=== PATIENT | male | born 2000 | race Two or more races ===

== ENCOUNTER 2022-10-28 19:52 | Emergency (ER) | payer MEDICAID ==
[~2022-10-28] VITALS: Ht 170.2 cm; Wt 71.8 kg
[2022-10-28] MEDS ORDERED: SODIUM CHLORIDE 0.9% 1,000 ML IVB ONE (20:15)
[2022-10-28] MEDS ORDERED: ASPirin 81 mg TAB PO ONE (20:15)
[2022-10-28] MEDS ORDERED: LORazepam 0.5 MG TAB PO ONE (20:15)
[2022-10-28 20:44] LABS: Basophils # (auto) 0 10 ^3/uL (0-0.2); Hematocrit 46.4 % (41.0-53.0); Hemoglobin 15.9 g/dL (13.5-17.5); Mean Corpuscular Hemoglobin 31.8 pg (28.0-32.0); White Blood Cell 5.8 10^3/uL (4.4-10.8)
[2022-10-28 20:51] LABS: Basophils % (auto) 0.4 % (0.0-2.0); Eosinophils # (auto) 0.3 10 ^3/uL (0-0.8); Eosinophils % (auto) 4.4 % (0.0-7.0); Lymphocytes # (auto) 2.9 10 ^3/uL (0.4-5.4); Lymphocytes % (auto) 50.2 % (10.0-50.0); Mean Corpuscular Hgb Conc. 34.2 g/dL (32.0-36.0); Mean Corpuscular Volume 93.1 fL (80.0-100.0); Monocytes # (auto) 0.3 10 ^3/uL (0-1.3); Monocytes % (auto) 5.6 % (0.0-12.0); Neutrophils # (auto) 2.3 10 ^3/uL (1.6-8.6); Neutrophils % (auto) 39.4 % (37.0-80.0); Nucleated Red Blood Cells % 0.2 %; Red Blood Cells 4.99 10^6/uL (4.5-5.90); Red Cell Distribution Width 12.7 % (11.8-14.3)
[2022-10-28 20:53] LABS: Albumin 4.5 g/dL (3.4-5.0); BUN/Creatinine Ratio 14.6; Calcium 9.2 mg/dL (8.5-10.1); Magnesium 1.8 mg/dL (1.6-2.6); Potassium 3.4 mmol/L (3.5-5.1)
[2022-10-28 20:56] LABS: Bilirubin, Total 0.5 mg/dL (0.2-1.0); Total Protein 7.7 g/dL (6.4-8.2)
[2022-10-28 20:57] LABS: Partial Thromboplastin Time 26.4 sec (24.6-33.4)
[2022-10-28] MEDS ORDERED: IBUP800T27 PO (22:14)
[2022-10-28] MEDS ORDERED: LORA-655 PO (22:14)
[2022-10-28 22:35] VITALS: BP 113/64
== END 2022-10-28 22:48 | disposition home or self-care (01) ==
LOC: ER 19:52
DX: R07.89 Other chest pain (principal); F41.9 Anxiety disorder, unspecified; Z79.899 Other long term (current) drug therapy; Z20.822 Contact with and (suspected) exposure to COVID-19
CPT/HCPCS: 36415; 71045; 80053; 83735; 83880; 84443; 84484; 85025; 85379; 85610; 85730; 87426; 87804; 93005; 96360; 99285; J7030

== ENCOUNTER 2023-06-05 17:19 | Emergency (ER) | payer MEDICAID ==
[~2023-06-05] VITALS: Ht 170.2 cm; Wt 78.1 kg
[~2023-06-05 17:19] MED LIST: IBUP-1456 PO; LORA-655 PO
[2023-06-05] MEDS ORDERED: CLIN300C70 PO (17:59)
[2023-06-05] MEDS ORDERED: IBUP1TAB5 PO (17:59)
[2023-06-05] MEDS ORDERED: HYDROcodone-ACET 5/325MG TAB PO ONE (18:00)
[2023-06-05] MEDS ORDERED: cefTRIAXone SOD 1,000 MG VL IM ONE (18:00)
[2023-06-06] VITALS: BP 120/61; PULSE 55; RESP 18; TEMP 98.7; O2SAT 99
[2023-06-06] MEDS ORDERED: LIDOCAINE 1% HCL (LOCAL ANESTH.) INJ 20ML MDV ONE (00:02)
== END 2023-06-06 00:12 | disposition home or self-care (01) ==
LOC: ER 17:19
DX: K04.7 Periapical abscess without sinus (principal); K02.9 Dental caries, unspecified; L03.211 Cellulitis of face; Z79.1 Long term (current) use of non-steroidal anti-inflammatories (NSAID); Z79.2 Long term (current) use of antibiotics; Z79.899 Other long term (current) drug therapy
CPT/HCPCS: 96372; 99283; J0696; J2001

== ENCOUNTER 2023-07-14 13:04 | Emergency (ER) | payer MEDICAID ==
[~2023-07-14 13:04] MED LIST changes: +CLIN300C70 PO; +IBUP1TAB5 PO
[2023-07-14 14:49] LABS: Hematocrit 44.5 % (41.0-53.0); Hemoglobin 15.3 g/dL (13.5-17.5); Mean Corpuscular Hemoglobin 31.7 pg (28.0-32.0); Mean Corpuscular Hgb Conc. 34.3 g/dL (32.0-36.0); Mean Corpuscular Volume 92.3 fL (80.0-100.0); Red Blood Cells 4.82 10^6/uL (4.5-5.90); White Blood Cell 6.4 10^3/uL (4.4-10.8)
[2023-07-14 14:54] LABS: Alanine Aminotransferase 46 U/L (7-40); Alkaline Phosphatase 55 U/L (46-116); Anion Gap 8 (5-15); Aspartate Aminotransferase 21 U/L (13-40); BUN/Creatinine Ratio 12.9 (10.0-20.0); Bilirubin, Total 0.8 mg/dL (0.2-1.0); Blood Urea Nitrogen 12 mg/dL (9-23); Calcium 9.3 mg/dL (8.7-10.4); Carbon Dioxide 23 mmol/L (20-30); Chloride 108 mmol/L (98-107); Glucose 113 mg/dL (74-106); Lipase 38 U/L (12-53); Potassium 3.9 mmol/L (3.5-5.1); Sodium 139 mmol/L (136-145); Total Protein 6.9 g/dL (5.7-8.2)
[2023-07-14 15:01] LABS: Band Neutrophils % (manual) 0; Basophils % (manual) 0 (0.0-2.0); Blast Cells 0; Metamyelocytes % 0; Myelocytes % 0; Promyelocytes % 0; Reactive Lymphocytes 0
[2023-07-14 15:06] LABS: INR 1.04 (0.9-1.15); Prothrombin Time 10.9 sec (9.3-11.8)
[2023-07-14 15:20] LABS: Albumin 4.6 g/dL (3.2-4.8)
[2023-07-14] MEDS ORDERED: NAPR-1334 PO (16:05)
[2023-07-14 16:16] VITALS: BP 111/66; PULSE 59; RESP 18; TEMP 98; O2SAT 97
[2023-07-14 16:59] LABS: Eosinophils % (manual) 3 (0-7); Lymphocytes % (manual) 57 (10.0-50.0); Monocytes % (manual) 10 (0-12); Platelet Estimate Adequate; RBC Morphology Normal
== END 2023-07-14 16:17 | disposition home or self-care (01) ==
LOC: ER 13:04
DX: R07.89 Other chest pain (principal); F41.9 Anxiety disorder, unspecified
CPT/HCPCS: 36415; 71045; 80053; 83690; 84484; 85007; 85027; 85379; 85610; 93005

== ENCOUNTER 2023-09-02 19:48 | Emergency (ER) | payer MEDICAID ==
[~2023-09-02] VITALS: Ht 170.2 cm; Wt 79.0 kg
[~2023-09-02 19:48] MED LIST changes: -IBUP-1456 PO; -IBUP1TAB5 PO; +NAPR-1334 PO
[2023-09-02] MEDS ORDERED: KETOROLAC TROMETH 30 MG/ML 1ML VIAL IM ONE (23:00)
[2023-09-02 23:16] VITALS: BP 128/68; PULSE 74; RESP 18; TEMP 98.3; O2SAT 96
== END 2023-09-02 23:38 | disposition home or self-care (01) ==
LOC: ER 19:48
DX: S02.5XXA Fracture of tooth (traumatic), initial encounter for closed fracture (principal); K08.89 Other specified disorders of teeth and supporting structures; F41.9 Anxiety disorder, unspecified; Z87.891 Personal history of nicotine dependence; Z79.899 Other long term (current) drug therapy; X58.XXXA Exposure to other specified factors, initial encounter; Y93.89 Activity, other specified; Y92.89 Other specified places as the place of occurrence of the external cause; Y99.8 Other external cause status
CPT/HCPCS: 96372; 99283; J1885

== ENCOUNTER 2023-09-29 09:59 | Emergency (ER) | payer SELFPAY ==
[~2023-09-29] VITALS: Ht 170.2 cm; Wt 77.2 kg
[2023-09-29 10:47] VITALS: BP 135/80; PULSE 82; RESP 18; TEMP 97.2; O2SAT 97
[2023-09-29] MEDS ORDERED: IBUP-1456 PO (10:55)
[2023-09-29] MEDS ORDERED: CLIN300C70 PO (10:55)
== END 2023-09-29 10:59 | disposition home or self-care (01) ==
LOC: ER 09:59
DX: K04.7 Periapical abscess without sinus (principal); F41.9 Anxiety disorder, unspecified; Z79.899 Other long term (current) drug therapy

== ENCOUNTER 2024-04-01 05:01 | Emergency (ER) | payer MEDICAID ==
[~2024-04-01] VITALS: Ht 172.7 cm; Wt 69.9 kg
[~2024-04-01 05:01] MED LIST changes: +CLIN1CAP70 PO; -CLIN300C70 PO; +IBUP-1456 PO; -NAPR-1334 PO; +NAPR-1335 PO
[2024-04-01 07:17] VITALS: BP 118/71; PULSE 71; RESP 18; TEMP 98; O2SAT 96
[2024-04-01] MEDS: KETOROLAC TROMETH 60MG/2ML VIAL IM ONE (07:21)
[2024-04-01 08:12] LABS: COVID19 ANTIGEN SOFIA FIA NEGATIVE (NEGATIVE)
== END 2024-04-01 10:27 | disposition left against medical advice (07) ==
LOC: ER 05:01
DX: R07.89 Other chest pain (principal); F41.9 Anxiety disorder, unspecified; Z79.899 Other long term (current) drug therapy; Z20.822 Contact with and (suspected) exposure to COVID-19
CPT/HCPCS: 36415; 87426; 93005; J1885

== ENCOUNTER 2024-04-17 00:07 | Emergency (ER) | payer MEDICAID ==
[~2024-04-17] VITALS: Ht 172.7 cm; Wt 80.0 kg
[2024-04-17] MEDS ORDERED: ESCI10TA PO (03:56)
[2024-04-17 04:01] VITALS: BP 118/73; PULSE 89; RESP 20; TEMP 97.8; O2SAT 97
== END 2024-04-17 05:04 | disposition home or self-care (01) ==
LOC: ER 00:07
DX: F32.A Depression, unspecified (principal); F41.9 Anxiety disorder, unspecified; Z76.0 Encounter for issue of repeat prescription

== ENCOUNTER 2025-08-19 03:31 | Emergency (ER) | payer MEDICAID ==
[~2025-08-19] VITALS: Ht 177.8 cm; Wt 85.2 kg
[~2025-08-19 03:31] MED LIST changes: +ESCI10TA PO
[2025-08-19 04:17] LABS: Hematocrit 43.6 % (41.0-53.0); Hemoglobin 15.2 g/dL (13.5-17.5); Mean Corpuscular Hemoglobin 31.7 pg (28.0-32.0); Mean Corpuscular Volume 90.8 fL (80.0-100.0); Nucleated Red Blood Cells % 0.0 %
[2025-08-19 04:27] LABS: Potassium 3.7 mmol/L (3.5-5.1); Sodium 140 mmol/L (136-145)
[2025-08-19 04:28] LABS: Anion Gap 7 (5-15); Calcium 9.5 mg/dL (8.7-10.4); Carbon Dioxide 25 mmol/L (20-31); Chloride 108 mmol/L (98-107)
[2025-08-19 04:33] LABS: BUN/Creatinine Ratio 13.8 (10.0-20.0); Blood Urea Nitrogen 12 mg/dL (9-23); Glucose 95 mg/dL (74-106)
--- NOTE | 2025-08-19 04:33 | ED.PDOC ---
History of Present Illness HPI Comments 25-year-old male who presents to the emergency department with a right-sided chest pain since working out in the gym last Tuesday. Pain not relieved with Advil and lidocaine patch at home. Patient reports pain is worse with any movement. Denies any significant past medical history. No family history of ca rdiac disease. Patient does use a vape regularly. No other complaints at this time. REVIEW OF SYSTEMS: General: No fever, no chills, or fatigue HEENT: No sore throat, no earache, no congestion, no neck pain. Cardiac: + chest pain. No palpitations. Lungs: No shortness of breath, no cough. + painful inspiration GI: No nausea, no vomiting, no diarrhea, no constipation, no abdominal pain : No dysuria, frequency, or urgency. No hematuria. Musculoskeletal: No joint pain , no joint swelling, no extremity edema. Skin: No rash, no itching. Neuro: No headache, no dizziness, no weakness (And as sated in HPI) PHYSICAL EXAM: General: Awake, alert and oriented. No acute distress. Skin: Skin in warm, dry and intact. Appropriate color for ethnicity. HEENT: The head is normocephalic and atraumatic. Conjunctivae are clear without exudates or hemorrhage. Sclera is non-icteric. Eyelids are normal in appearance without swelling or lesions. Oral mucosa is pink and moist Neck: The neck is supple with normal range of motion. No JVD. Cardiac: Heart rate and rhythm are normal. No murmurs, gallops, or rubs are auscultated. Positive right chest wall tenderness to palpation. Respiratory: No signs of respiratory distress. Lung sounds are clear in all lobes bilaterally without rales, rhonchi, or wheezes. Abdominal: Abdomen is soft, non-tender without distention, guarding or rigidity. Bowel sounds are present and normoactive in all four quadrants. Extremities: Upper and lower extremities are atraumatic in appearance without deformity or edema. Neurological: The patient is awake, alert and oriented to person, place, and time with normal speech. Speech is clear. There is no facial asymmetry. Psychiatric: Appropriate mood and affect. Good judgement and insight. Chief Complaint: Chest Pain Time Seen by MD: 03:44 Primary Care Provider: FIDE Allergies: Coded Allergies: NO KNOWN ALLERGIES (Unverified , 10/28/22) Home Meds Active Scripts Escitalopram Oxalate (Lexapro) 10 Mg Tab, 1 TAB PO DAILY, #7 TAB 0 Refills Prov:LAURA STEWART 04/17/24 Ibuprofen (Ibuprofen) 800 Mg Tab, 1 TAB PO TID, #30 TAB Prov:JOSE ZAMARRIPA 01/13/24 Clindamycin Hcl (Clindamycin Hcl) 300 Mg Cap, 1 CAP PO QID for 10 Days, #40 CAP Prov:JOSE ZAMARRIPA 01/13/24 Clindamycin Hcl (Clindamycin Hcl) 300 Mg Cap, 1 CAP PO TID, #30 CAP Prov:JOSE ZAMARRIPA 09/29/23 Naproxen Sodium (Naproxen) 220 Mg Tab, 220 MG PO BID for 7 Days, #14 TAB Prov:KENDALL EAST MD 07/14/23 Lorazepam (Ativan) 0.5 Mg Tab, 1 MG PO BIDP PRN for 7 Days, #28 TAB Prov:LOBO VÁSQUEZ DO 10/28/22 Mode of Arrival: Ambulatory Past Medical History PAST MEDICAL HISTORY: Anxiety, Depression Surgical History: Denies all surgeries Family History Family History: Unknown Social History Smoker: Non-Smoker Alcohol: Denies ETOH Use Drugs: Denies Drug Use Lives In: Home Was a procedure done? Was a procedure done?: No EKG EKG : Comments No STEMI Differential Dx Considerations may include: Differential diagnoses considered include acute ischemic coronary syndrome, aortic dissection, cardiac tamponade, mediastinitis, pulmonary embolus, pneumothorax, tension pneumothorax, esophageal rupture, coronary artery vasospasm, myocarditis, pericarditis, pneumonia, pulmonary edema, esophageal tear, pancreatitis, aortic stenosis, dilated cardiomyopathy, hypertrophic cardiomyopathy, mitral valve prolapse, malignancy, pleuritis, pneumomediastinum, primary pulmonary hypertension, cholecystitis, esophageal spasm, esophagus, gastritis, GERD, peptic ulcer disease, costochondritis, fibromyalgia, rib fracture, herpes zoster, radicular syndromes, thoracic outlet syndrome, somatization. X-Ray, Labs, Meds, VS Vital Signs Date Time Temp Pulse Resp B/P (MAP) Pulse Ox O2 Delivery O2 Flow Rate FiO2 08/19/25 05:19 63 18 98 Room Air 08/19/25 05:19 98.2 63 18 127/85 (99) 98 98.2 08/19/25 04:53 56 08/19/25 03:45 60 08/19/25 03:40 98.5 76 18 118/69 98 98.5 Lab Test 08/19/25 05:09 08/19/25 04:05 Range/Units Troponin I High Sensitivity < 3 L < 3 L </=54 ng/L White Blood Count 7.6 4.4-10.8 10^3/uL Red Blood Count 4.80 4.5-5.90 10^6/uL Hemoglobin 15.2 13.5-17.5 g/dL Hematocrit 43.6 41.0-53.0 % Mean Corpuscular Volume 90.8 80.0-100.0 fL Mean Corpuscular Hemoglobin 31.7 28.0-32.0 pg Mean Corpuscular Hemoglobin Concent 34.9 32.0-36.0 g/dL Red Cell Distribution Width 12.8 11.8-14.3 % Platelet Count 205 140-450 10^3/uL Mean Platelet Volume 8.4 6.9-10.8 fL Neutrophils (%) (Auto) 43.5 37.0-80.0 % Lymphocytes (%) (Auto) 45.5 10.0-50.0 % Monocytes (%) (Auto) 7.5 0.0-12.0 % Eosinophils (%) (Auto) 2.8 0.0-7.0 % Basophils (%) (Auto) 0.7 0.0-2.0 % Neutrophils # (Auto) 3.3 1.6-8.6 10 ^3/uL Lymphocytes # (Auto) 3.5 0.4-5.4 10 ^3/uL Monocytes # (Auto) 0.6 0-1.3 10 ^3/uL Eosinophils # (Auto) 0.2 0-0.8 10 ^3/uL Basophils # (Auto) 0 0-0.2 10 ^3/uL Nucleated Red Blood Cells 0.0 % Sodium Level 140 136-145 mmol/L Potassium Level 3.7 3.5-5.1 mmol/L Chloride Level 108 H 98-107 mmol/L Carbon Dioxide Level 25 20-31 mmol/L Anion Gap 7 5-15 Blood Urea Nitrogen 12 9-23 mg/dL Creatinine 0.87 0.700-1.30 mg/dL Glomerular Filtration Rate Calc 121 >90 mL/min BUN/Creatinine Ratio 13.8 10.0-20.0 Serum Glucose 95 74-106 mg/dL Calcium Level 9.5 8.7-10.4 mg/dL Current Medications Medications (Trade) Dose Ordered Sig/[place] Route Start Time Stop Time Status Last Admin Ketorolac Tromethamine (Toradol Injection) 30 mg ONCE ONCE IM 08/19/25 04:15 08/19/25 04:16 DC 08/19/25 05:49 Tramadol HCl (Ultram) 50 mg ONCE ONCE PO 08/19/25 04:15 08/19/25 04:16 DC 08/19/25 05:50 Acetaminophen (Tylenol Tablet) 650 mg ONCE ONCE PO 08/19/25 04:15 08/19/25 04:16 DC 08/19/25 04:58 Time of 1ST Reevaluation: 04:30 Reevaluation 1ST: Unchanged Patient Education/Counseling: Need For Follow Up Family Education/Counseling: No Family Present SEPSIS Sepsis Screen Date sepsis recognized/suspect: Aug 19, 2025 Time Sepsis recognized/suspect: 341 Recent Procedure: No On Antibiotic Therapy: No Respiratory Rate >20: No Heart Rate >90: No Temp<36 C (96.8 F) or >38.3 C: No SBP <90 or MAP <65 mmHG: No New Acute Mental Status Change: No Is the patient on CPAP, BIPAP,: No Physician Orders Electrocardigram (08/19/25 03:43) Electrocardigram (08/19/25 04:43) Chest Portable (08/19/25 03:43) Vital Signs Date Time Temp Pulse Resp B/P (MAP) Pulse Ox O2 Delivery O2 Flow Rate FiO2 08/19/25 05:19 63 18 98 Room Air 08/19/25 05:19 98.2 63 18 127/85 (99) 98 98.2 08/19/25 04:53 56 08/19/25 03:45 60 08/19/25 03:40 98.5 76 18 118/69 98 98.5 Laboratory Tests Test 08/19/25 04:05 White Blood Count 7.6 10^3/uL (4.4-10.8) Departure 1 Departure Time of Disposition: 05:30 Impression: Primary Impression: Chest wall pain Disposition: 01 HOME / SELF CARE / HOMELESS Condition: Stable Additional Instructions: ED DISCHARGE INSTRUCTIONS Instructions: Please read all instructions provided in this packet carefully. Although you have been discharged from the Emergency Department, this does not mean that you have a "clean bill of health". No definitive diagnosis for your symptoms has been made today. It is possible that you are in the process of developing a serious illness. This is why you must return to the ED without fail if any new or worsening symptoms (especially if your symptoms include chest pain, trouble breathing, abdominal pain, fever, headache, confusion, trouble seeing, or trouble walking) It is also very important that you see a primary care provider (PCP) within the next 3-5 days to follow up. If you are unable to get an appointment, return to the ED for re-evaluation. CHEST PAIN EDUCATION There are many things that can cause chest pain. Some are not serious and will get better on their own in a few days. But some kinds of chest pain need more testing and treatment. Your doctor may have recommended a follow-up visit in the next few days. If you are not getting better, you may need more tests or treatment. Even though your doctor has released you, you still need to watch for any problems. The doctor carefully checked you, but sometimes problems can develop later. If you have new symptoms or if your symptoms do not get better, get medical care right away. If you have worse or different chest pain or pressure that lasts more than 5 minutes or you passed out (lost consciousness), call 911 or seek other emergency help right away. A medical visit is only one step in your treatment. Even if you feel better, you still need to do what your doctor recommends, such as going to all suggested follow-up appointments and taking medicines exactly as directed. This will help you recover and help prevent future problems. How can you care for yourself at home? Rest until you feel better. Take your medicine exactly as prescribed. Call your doctor if you think you are having a problem with your medicine. Do not drive after taking a prescription pain medicine. When should you call for help? Call 911 if: You passed out (lost consciousness). You have severe difficulty breathing. You have symptoms of a heart attack. These may include: Chest pain or pressure, or a strange feeling in your chest. Sweating. Shortness of breath. Nausea or vomiting. Pain, pressure, or a strange feeling in your back, neck, jaw, or upper belly or in one or both shoulders or arms. Lightheadedness or sudden weakness. A fast or irregular heartbeat. After you call 911, the tube sizer operator may tell you to chew 1 adult-strength or 2 to 4 low-dose aspirin. Wait for an ambulance. Do not try to drive yourself. Call your doctor now or seek immediate medical care if: You have any trouble breathing. You have new or different chest pain. You are dizzy or lightheaded, or you feel like you may faint. Watch closely for changes in your health, and be sure to contact your doctor if you do not get better as expected. Current as of: May 09, 2024 Author: [facility] Staff? Comments MDM: 25-year-old male with reproducible right-sided chest wall pain. EKG negative for signs of ischemia. High sensitivity troponin negative. CXR shows no acute process. Presentation not suggestive of acute coronary syndrome, pulmonary embolism or aortic dissection. Patient improved at time of discharge. Patient has not been hypoxic, in respiratory distress or dyspneic during the ED observation. Patient able to ambulate without difficulty. Patient felt stable for discharge to follow up with PCP promptly. Patient advised to return to the ED with any new, worsening or concerning symptoms or inability to follow up with PCP. I reviewed the following notes from the pt's past medical encounters: N/A The following tests were ordered, and results were reviewed by me: (See diagnostic results section) The following test were independently interpreted by me: EKG, chest x-ray-no acute disease Additional information was gathered from interviewing the following independent historians: N/A I reviewed and agreed with the following test results read by other providers: Chest x-ray I discussed treatments and results with patient Decision regarding hospitalization or escalation of hospital level of care: Risks and benefits of admission for further treatment of patient's condition was considered however due to patient's stable condition patient will be discharged to follow up closely or return to care for worsening of condition or inability to follow up. Critical Care Note Critical Care Time?: No Stability Stability form required: No Heart Score Heart Score: Heart Score Response (Comments) Value History N/A 0 EKG N/A 0 Age N/A 0 Risk Factors N/A 0 Troponin N/A 0 Total 0 ARCHANA VILLANUEVA MD Aug 19, 2025 04:33
--- NOTE | 2025-08-19 04:48 | DVH ---
CHEST RADIOGRAPH Indication: CHEST PAIN Technique: Single frontal view of the chest was obtained Comparison: XY CHEST XRAY 1 VIEW on DOS: 07/14/23. FINDINGS: Lines and Tubes: None Lungs: No focal consolidation. Pleura: No effusion. No pneumothorax. Cardiomediastinal contours: Unremarkable Bones: No acute osseous abnormality. IMPRESSION: 1. No acute cardiopulmonary disease.
[2025-08-19] MEDS: ACETAMINOPHEN 325 MG TAB PO ONE (04:58)
[2025-08-19 05:19] VITALS: BP 127/85; PULSE 63; RESP 18; TEMP 98.2; O2SAT 98
--- NOTE | 2025-08-19 05:45 | ECG ---
[facility] Test Date: 2025-08-19 Test Time: 04:53:34 Pat Name: SOLEDAD JOHNSON Department: Room: Gender: M Duct Layer: : 2000 Requested By: EMERGENCY EMERGENCY Order Number: [id number] Reading MD: Hilario Summers Measurements Intervals [place] Rate: 56 P: 18 [place]: 150 QRS: 94 QRSD: 104 T: 17 QT: 407 QTc: 393 Interpretive Statements Sinus rhythm Borderline right axis deviation ST elev, probable normal early repol pattern Electronically Signed On 08-19-2025 11:02:00 PST by Hilario Summers Please click the below link to view image of tracing.
[2025-08-19] MEDS: KETOROLAC TROMETH 30 MG/ML 1ML VIAL IM ONE (05:49)
--- NOTE | 2025-08-22 07:15 | ECG ---
[facility] Test Date: 2025-08-19 Test Time: 03:45:01 Pat Name: SOLEDAD JOHNSON Department: Room: Gender: M Electric Sign Wirer: LUIS ALBERTO : 2000 Requested By: EMERGENCY EMERGENCY Order Number: [id number] Reading MD: Measurements Intervals [place] Rate: 60 P: 13 [place]: 148 QRS: 94 QRSD: 107 T: 7 QT: 396 QTc: 396 Interpretive Statements Sinus rhythm Borderline right axis deviation ST elevation, consider anterolateral injury Please click the below link to view image of tracing.
== END 2025-08-19 06:53 | disposition home or self-care (01) ==
LOC: ER 03:31
DX: R07.89 Other chest pain (principal); F41.9 Anxiety disorder, unspecified; F32.A Depression, unspecified; Z79.899 Other long term (current) drug therapy
CPT/HCPCS: 36415; 71045; 80048; 84484; 85025; 93005; 96372; 99285; J1885